=== PATIENT | male | born 1965 | race Caucasian/White ===

== ENCOUNTER 2017-08-29 11:23 | Day surgery (SDC) | payer BC ==
[2017-08-29] MEDS ORDERED: LIDOCAINE 2% MDV (20MG/ML) 20ML VIAL IV ONE (15:52)
[2017-08-29] MEDS ORDERED: MIDAZOLAM HCL 2MG/2ML VIAL IV ONE (15:52)
[2017-08-29] MEDS ORDERED: PROPOFOL 10 MG/ML VIAL IV ONE (15:52)
--- NOTE | 2017-09-01 12:30 | Operative Note ---
DATE OF SURGERY: 08/29/2017 SURGEON: Marine Garg MD OPERATION: COLONOSCOPY. INDICATIONS: This is a 52-year-old male with average risk for colorectal cancer who presented for screening colonoscopy. POSTOPERATIVE DIAGNOSES: 1. Two 8-15 mm polyps in the sigmoid colon that were removed by snare cautery. 2. An 8 mm sessile polyp in the rectum that was removed by cold snare. 3. Segmental colitis involving the sigmoid colon, status post biopsy. 4. Otherwise normal colon. ANESTHESIA: Sedation is per Anesthesia. Pulse oximetry was monitored throughout the procedure to maintain O2 saturation of 90% or greater. Supplemental oxygen was administered via nasal cannula. Cardiac and vital signs were monitored throughout the duration of the procedure, and they were stable. The procedure of colonoscopy and risks and alternatives of the procedure, including the risk of bleeding and perforation, among others, were explained to the patient who voiced understanding and agreed to have the procedure done. Physical examination was performed, and the patient was found stable for sedation. PROCEDURE: The patient was placed in the left lateral position. Sedation was initiated. A digital rectal exam was performed and showed some mild external hemorrhoids with no palpable rectal masses. An Olympus PCF-180AL colonoscope was then inserted into the rectum under direct visualization. It was advanced to the cecum without difficulty. The ileocecal valve and appendiceal orifice were identified and photographed. The colonic mucosa was carefully examined upon introduction of the colonoscope. In the sigmoid colon was a segment of colonic mucosa that appeared erythematous with linear erosions but no ulcerations were noted. Two 8-15 mm sessile polyps were noted and they were removed by snare cautery. The rest of the colonic mucosa appeared normal. The colonoscope was then withdrawn while carefully examining the colonic mucosal surfaces. No other lesions were noted. Multiple biopsies were obtained for the area of the colitis. In the rectum, retroflexion was performed and a 6 mm sessile polyp was noted and was removed by cold snare. There were no other lesions noted. The colonoscope was then withdrawn and the procedure was terminated. The patient tolerated the procedure well without any immediate complications. He remained with stable vital signs and was transferred to the recovery room. RECOMMENDATIONS: 1. The patient should be on a low-residue diet for 2 weeks and thereafter to be on a high-fiber diet. 2. The patient is to have a repeat colonoscopy for surveillance in 3 years. Thank you for allowing me to participate in the care of your patient. CC: Dr. Vy KHAN
== END 2017-08-29 14:17 | disposition home or self-care (01) ==
LOC: HOP 11:23
PROVIDERS: ATTEND Internal Medicine Gastroenterology
DX: Z12.11 Encounter for screening for malignant neoplasm of colon (principal); K50.10 Crohn's disease of large intestine without complications; D12.5 Benign neoplasm of sigmoid colon; D12.8 Benign neoplasm of rectum; K64.4 Residual hemorrhoidal skin tags